=== PATIENT | female | born 1995 | race American Indian/Alaskan Native ===

== ENCOUNTER 2022-07-17 20:53 | Inpatient (IN) | payer MEDICAID ==
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
[2022-07-17] MEDS ORDERED: CARBOPROST TROMETHAMINE 250 MCG/1 ML INJ IM PRN (22:46)
[2022-07-17] MEDS ORDERED: ePHEDrine SULFATE 50 MG/1 ML INJ IV PRN (22:46)
[2022-07-17] MEDS ORDERED: METHYLERGONOVINE MALEATE 0.2 MG/ML VIAL IM PRN (22:46)
[2022-07-17] MEDS ORDERED: BUTORPHANOL 2 MG/1 ML INJ IV PRN (22:46)
[2022-07-17] MEDS ORDERED: ACETAMINOPHEN 325 MG TAB PO PRN (22:46)
[2022-07-17] MEDS ORDERED: AMPICILLIN/NS 2 GM/100 ML 2 GM/100 ML BAG IV ONE (22:46)
[2022-07-17] MEDS ORDERED: MINERAL OIL 30 ML ORAL LIQD PO PRN (22:46)
[2022-07-17] MEDS ORDERED: TERBUTALINE 1 MG/1 ML INJ SUB-Q PRN (22:46)
[2022-07-17] MEDS ORDERED: LIDOCAINE (2%) 20 MG/1 ML VIAL 20 ML MDV INFILTRATI ONE (22:46)
[2022-07-17] MEDS ORDERED: LOPERAMIDE 2 MG CAP PO PRN (22:46)
[2022-07-17] MEDS ORDERED: ONDANSETRON 4 MG/2 ML INJ IV PRN (22:46)
[2022-07-17] MEDS ORDERED: OXYTOCIN 10 UNIT/1 ML INJ IM PRN (22:46)
[2022-07-17] MEDS ORDERED: miSOPROStol 200 MCG TAB PR PRN (22:46)
[2022-07-17] MEDS ORDERED: AZITHROMYCIN 250 MG TAB PO ONE (22:51)
[2022-07-17] MEDS ORDERED: LIDOCAINE-MPF (1%) 10 MG/1 ML VIAL 5 ML INFILTRATI ONE (22:54)
[2022-07-17] MEDS ORDERED: OXYTOCIN DRIP 30 UNITS/500 ML BAG IV SCH ×2 (23:00)
[2022-07-17] MEDS ORDERED: LACTATED RINGERS 1,000 ML ONE (23:06)
[2022-07-17 23:10] LABS: Hematocrit 31.5 % (30.3-42.9); Hemoglobin 10.2 gm/dl (10.1-14.3); Mean Corpuscular HGB Conc 32 % (30-34); Mean Corpuscular Volume 77 fl (79-97); Platelet Count 230 K/mm3 (140-440); Red Cell Distribution Width 14.9 % (13.2-15.2)
[2022-07-18] MEDS ORDERED: SODIUM CHLORIDE 0.9% 250ML 250 ML IV ONE (00:28)
[2022-07-18] MEDS: fentaNYL 100 MCG/2 ML INJ IV PRN ×2 (02:02→04:42)
[2022-07-18] MEDS: AMPICILLIN/NS 1 GM/50 ML 1 GM/50 ML BAG IV SCH ×3 (03:55→17:21)
--- NOTE | 2022-07-18 07:41 | Progress Note ---
Assessment and Plan Plan to increase pitocin as needed for adequate labor. Epidural PRN. Anticipate - Patient Problems (1) 38 weeks gestation of Current Visit: Yes Status: Acute (2) Chlamydia Current Visit: Yes Status: Acute Plan to address problem: treated 07/17/2022 (3) Gonorrhea affecting in third trimester Current Visit: Yes Status: Acute Plan to address problem: treated 07/17/2022 (4) IUGR (intrauterine growth restriction) affecting care of mother Current Visit: Yes Status: Acute Qualifiers: Fetus number: single or unspecified fetus Trimester: third trimester Qualified Code(s): O36.5930 - Maternal care for other known or suspected poor growth, third trimester, not applicable or unspecified (5) Positive GBS test Current Visit: Yes Status: Acute Plan to address problem: continue amp q4hrs (6) SROM (spontaneous rupture of membranes) Current Visit: Yes Status: Acute Subjective - Subjective Date of service: 07/18/22 Principal diagnosis: IOL IUGR; SROM Patient reports: loss of fluid, movement normal, contractions, no vaginal bleeding Objective - Vital Signs Vital Signs: Vital Signs - 12hr 07/17/22 07/17/22 07/17/22 21:19 21:48 21:49 Temperature 98.6 F Pulse Rate 85 81 Respiratory 15 Rate Blood Pressure 116/79 O2 Sat by Pulse 100 Oximetry O2 Sat by Pulse 98 Oximetry [ Anterior Bilateral Throughout] 07/17/22 07/17/22 07/17/22 21:53 21:58 22:03 Temperature Pulse Rate 95 H 84 77 Respiratory Rate Blood Pressure O2 Sat by Pulse 100 100 100 Oximetry O2 Sat by Pulse Oximetry [ Anterior Bilateral Throughout] 07/17/22 07/17/22 07/17/22 22:08 22:13 22:18 Temperature Pulse Rate 86 86 86 Respiratory Rate Blood Pressure O2 Sat by Pulse 100 100 100 Oximetry O2 Sat by Pulse Oximetry [ Anterior Bilateral Throughout] 07/17/22 07/17/22 07/17/22 22:23 22:28 22:34 Temperature Pulse Rate 89 85 83 Respiratory Rate Blood Pressure O2 Sat by Pulse 100 100 99 Oximetry O2 Sat by Pulse Oximetry [ Anterior Bilateral Throughout] 07/17/22 07/17/22 07/17/22 22:39 22:44 22:49 Temperature Pulse Rate 87 79 84 Respiratory Rate Blood Pressure O2 Sat by Pulse 100 100 100 Oximetry O2 Sat by Pulse Oximetry [ Anterior Bilateral Throughout] 07/17/22 07/17/22 07/17/22 22:54 22:59 23:04 Temperature Pulse Rate 90 80 88 Respiratory Rate Blood Pressure O2 Sat by Pulse 100 100 100 Oximetry O2 Sat by Pulse Oximetry [ Anterior Bilateral Throughout] 07/17/22 07/17/22 07/17/22 23:09 23:19 23:21 Temperature Pulse Rate 79 77 71 Respiratory Rate Blood Pressure 121/83 O2 Sat by Pulse 100 99 Oximetry O2 Sat by Pulse Oximetry [ Anterior Bilateral Throughout] 07/17/22 07/17/22 07/17/22 23:22 23:24 23:29 Temperature 98.3 F Pulse Rate 76 80 Respiratory 17 Rate Blood Pressure O2 Sat by Pulse 100 100 Oximetry O2 Sat by Pulse Oximetry [ Anterior Bilateral Throughout] 07/17/22 07/17/22 07/17/22 23:34 23:39 23:44 Temperature Pulse Rate 75 83 80 Respiratory Rate Blood Pressure O2 Sat by Pulse 100 100 100 Oximetry O2 Sat by Pulse Oximetry [ Anterior Bilateral Throughout] 07/17/22 07/17/22 07/17/22 23:49 23:54 23:59 Temperature Pulse Rate 76 80 82 Respiratory Rate Blood Pressure O2 Sat by Pulse 100 100 100 Oximetry O2 Sat by Pulse Oximetry [ Anterior Bilateral Throughout] 07/18/22 07/18/22 07/18/22 00:04 00:09 00:14 Temperature Pulse Rate 80 88 83 Respiratory Rate Blood Pressure O2 Sat by Pulse 100 100 100 Oximetry O2 Sat by Pulse Oximetry [ Anterior Bilateral Throughout] 07/18/22 07/18/22 07/18/22 00:19 00:24 00:29 Temperature Pulse Rate 98 H 80 81 Respiratory Rate Blood Pressure O2 Sat by Pulse 100 99 100 Oximetry O2 Sat by Pulse Oximetry [ Anterior Bilateral Throughout] 07/18/22 07/18/22 07/18/22 00:34 00:39 00:44 Temperature Pulse Rate 83 77 96 H Respiratory Rate Blood Pressure O2 Sat by Pulse 99 100 99 Oximetry O2 Sat by Pulse Oximetry [ Anterior Bilateral Throughout] 07/18/22 07/18/22 07/18/22 00:49 00:54 00:59 Temperature Pulse Rate 77 79 79 Respiratory Rate Blood Pressure O2 Sat by Pulse 99 98 100 Oximetry O2 Sat by Pulse Oximetry [ Anterior Bilateral Throughout] 07/18/22 07/18/22 07/18/22 01:04 01:09 01:14 Temperature Pulse Rate 87 78 89 Respiratory Rate Blood Pressure O2 Sat by Pulse 99 100 100 Oximetry O2 Sat by Pulse Oximetry [ Anterior Bilateral Throughout] 07/18/22 07/18/22 07/18/22 01:19 01:24 01:29 Temperature Pulse Rate 76 86 78 Respiratory Rate Blood Pressure O2 Sat by Pulse 100 100 100 Oximetry O2 Sat by Pulse Oximetry [ Anterior Bilateral Throughout] 07/18/22 07/18/22 07/18/22 01:34 01:36 01:39 Temperature 97.8 F Pulse Rate 73 90 Respiratory 17 Rate Blood Pressure O2 Sat by Pulse 100 100 Oximetry O2 Sat by Pulse Oximetry [ Anterior Bilateral Throughout] 07/18/22 07/18/22 07/18/22 01:44 01:49 01:57 Temperature Pulse Rate 79 82 77 Respiratory Rate Blood Pressure O2 Sat by Pulse 99 100 100 Oximetry O2 Sat by Pulse Oximetry [ Anterior Bilateral Throughout] 07/18/22 07/18/22 07/18/22 02:02 02:07 02:12 Temperature Pulse Rate 86 92 H 78 Respiratory Rate Blood Pressure O2 Sat by Pulse 98 98 98 Oximetry O2 Sat by Pulse Oximetry [ Anterior Bilateral Throughout] 07/18/22 07/18/22 07/18/22 02:17 02:22 02:27 Temperature Pulse Rate 82 81 78 Respiratory Rate Blood Pressure O2 Sat by Pulse 99 99 99 Oximetry O2 Sat by Pulse Oximetry [ Anterior Bilateral Throughout] 07/18/22 07/18/22 07/18/22 02:32 02:37 02:42 Temperature Pulse Rate 71 79 77 Respiratory Rate Blood Pressure O2 Sat by Pulse 99 98 99 Oximetry O2 Sat by Pulse Oximetry [ Anterior Bilateral Throughout] 07/18/22 07/18/22 07/18/22 02:47 02:52 02:57 Temperature Pulse Rate 81 79 75 Respiratory Rate Blood Pressure O2 Sat by Pulse 98 98 98 Oximetry O2 Sat by Pulse Oximetry [ Anterior Bilateral Throughout] 07/18/22 07/18/22 07/18/22 03:02 03:07 03:12 Temperature Pulse Rate 85 83 89 Respiratory Rate Blood Pressure O2 Sat by Pulse 97 97 99 Oximetry O2 Sat by Pulse Oximetry [ Anterior Bilateral Throughout] 07/18/22 07/18/22 07/18/22 03:17 03:22 03:27 Temperature Pulse Rate 75 87 79 Respiratory Rate Blood Pressure O2 Sat by Pulse 98 99 98 Oximetry O2 Sat by Pulse Oximetry [ Anterior Bilateral Throughout] 07/18/22 07/18/22 07/18/22 03:32 03:37 03:42 Temperature Pulse Rate 79 81 87 Respiratory Rate Blood Pressure O2 Sat by Pulse 99 98 99 Oximetry O2 Sat by Pulse Oximetry [ Anterior Bilateral Throughout] 07/18/22 07/18/22 07/18/22 03:47 03:52 03:57 Temperature Pulse Rate 82 82 82 Respiratory Rate Blood Pressure O2 Sat by Pulse 99 98 100 Oximetry O2 Sat by Pulse Oximetry [ Anterior Bilateral Throughout] 07/18/22 07/18/22 07/18/22 04:02 04:07 04:12 Temperature Pulse Rate 76 85 78 Respiratory Rate Blood Pressure O2 Sat by Pulse 99 99 98 Oximetry O2 Sat by Pulse Oximetry [ Anterior Bilateral Throughout] 07/18/22 07/18/22 07/18/22 04:17 04:22 04:27 Temperature Pulse Rate 78 81 77 Respiratory Rate Blood Pressure O2 Sat by Pulse 98 98 99 Oximetry O2 Sat by Pulse Oximetry [ Anterior Bilateral Throughout] 07/18/22 07/18/22 07/18/22 04:32 04:37 04:41 Temperature 98.1 F Pulse Rate 78 88 74 Respiratory 16 Rate Blood Pressure 118/75 O2 Sat by Pulse 98 99 Oximetry O2 Sat by Pulse Oximetry [ Anterior Bilateral Throughout] 07/18/22 07/18/22 07/18/22 04:42 04:47 04:52 Temperature Pulse Rate 80 83 77 Respiratory Rate Blood Pressure O2 Sat by Pulse 99 97 98 Oximetry O2 Sat by Pulse Oximetry [ Anterior Bilateral Throughout] 07/18/22 07/18/22 07/18/22 04:57 05:02 05:07 Temperature Pulse Rate 77 73 84 Respiratory Rate Blood Pressure O2 Sat by Pulse 98 98 98 Oximetry O2 Sat by Pulse Oximetry [ Anterior Bilateral Throughout] 07/18/22 07/18/22 07/18/22 05:12 05:17 05:22 Temperature Pulse Rate 74 80 73 Respiratory Rate Blood Pressure O2 Sat by Pulse 98 97 98 Oximetry O2 Sat by Pulse Oximetry [ Anterior Bilateral Throughout] 07/18/22 07/18/22 07/18/22 05:27 05:48 05:53 Temperature Pulse Rate 77 91 H 88 Respiratory Rate Blood Pressure O2 Sat by Pulse 98 100 100 Oximetry O2 Sat by Pulse Oximetry [ Anterior Bilateral Throughout] 07/18/22 07/18/22 07/18/22 05:58 06:03 06:08 Temperature Pulse Rate 77 80 74 Respiratory Rate Blood Pressure O2 Sat by Pulse 99 99 99 Oximetry O2 Sat by Pulse Oximetry [ Anterior Bilateral Throughout] 07/18/22 07/18/22 07/18/22 06:13 06:18 06:23 Temperature Pulse Rate 70 78 79 Respiratory Rate Blood Pressure O2 Sat by Pulse 99 98 100 Oximetry O2 Sat by Pulse Oximetry [ Anterior Bilateral Throughout] 07/18/22 07/18/22 07/18/22 06:28 06:33 06:38 Temperature Pulse Rate 74 84 82 Respiratory Rate Blood Pressure O2 Sat by Pulse 99 98 99 Oximetry O2 Sat by Pulse Oximetry [ Anterior Bilateral Throughout] 07/18/22 07/18/22 07/18/22 06:43 06:48 06:53 Temperature Pulse Rate 69 74 74 Respiratory Rate Blood Pressure O2 Sat by Pulse 98 98 98 Oximetry O2 Sat by Pulse Oximetry [ Anterior Bilateral Throughout] 07/18/22 07/18/22 07/18/22 06:58 07:03 07:08 Temperature Pulse Rate 81 76 74 Respiratory Rate Blood Pressure O2 Sat by Pulse 99 99 98 Oximetry O2 Sat by Pulse Oximetry [ Anterior Bilateral Throughout] 07/18/22 07/18/22 07/18/22 07:10 07:13 07:18 Temperature Pulse Rate 80 77 71 Respiratory Rate Blood Pressure O2 Sat by Pulse 69 L 99 99 Oximetry O2 Sat by Pulse Oximetry [ Anterior Bilateral Throughout] 07/18/22 07/18/22 07/18/22 07:23 07:28 07:33 Temperature Pulse Rate 86 73 74 Respiratory Rate Blood Pressure O2 Sat by Pulse 99 99 99 Oximetry O2 Sat by Pulse Oximetry [ Anterior Bilateral Throughout] 07/18/22 07:38 Temperature Pulse Rate 71 Respiratory Rate Blood Pressure O2 Sat by Pulse 100 Oximetry O2 Sat by Pulse Oximetry [ Anterior Bilateral Throughout] - Exam Breasts: normal Cardiovascular: Regular rate Lungs: Normal air movement Abdomen: Present: normal appearance, soft Vulva: both: normal Uterus: Present: normal, fundal height above umbilicus FHR: category 1 Uterine Contraction Monitor Mode: External Uterine Contraction Pattern: Regular Uterine Tone Measurement Phase: Contraction Uterine Contraction Intensity: Mild Extremities: normal - Labs Labs: Abnormal Labs 07/17/22 22:00 MCV 77 L MCH 25 L Laboratory Results - last 24 hr 07/17/22 07/17/22 07/17/22 22:00 22:00 22:00 WBC 9.3 RBC 4.10 Hgb 10.2 Hct 31.5 MCV 77 L MCH 25 L MCHC 32 RDW 14.9 Plt Count 230 Syphilis IgG/IgM Ab Nonreactive HIV 1&2 Antibody Rapid HIV P24 Antigen Blood Type O POSITIVE Antibody Screen Negative 07/17/22 22:00 WBC RBC Hgb Hct MCV MCH MCHC RDW Plt Count Syphilis IgG/IgM Ab HIV 1&2 Antibody Rapid Non react HIV P24 Antigen Non react Blood Type Antibody Screen
[2022-07-18] MEDS ORDERED: LACTATED RINGERS 1,000 ML ONE ×3 (09:25→17:16)
--- NOTE | 2022-07-18 11:02 | Anesthesia Consultation ---
Anesthesia Consult and Med Hx Date of service: 07/18/22 - Airway Anesthetic Teeth Evaluation: Good ROM Head & Neck: Adequate Mental/Hyoid Distance: Adequate Mallampati Class: Class II Intubation Access Assessment: Probably Good - Pulmonary Exam CTA: Yes - Cardiac Exam Cardiac Exam: RRR - Pre-Operative Health Status ASA Pre-Surgery Classification: ASA2 Proposed Anesthetic Plan: Epidural - Pulmonary Hx Smoking: No Hx Asthma: No Hx Respiratory Symptoms: No SOB: No COPD: No Home Oxygen Therapy: No Hx Pneumonia: No Hx Sleep Apnea: No - Cardiovascular System Hx Hypertension: No Hx Coronary Artery Disease: No Hx Heart Attack/AMI: No Hx Angina: No Hx Percutaneous Transluminal Coronary Angioplasty (PTCA): No Hx Cardia Arrhythmia: No Hx Pacemaker: No Hx Internal Defibrillator: No Hx Valvular Heart Disease: No Hx Heart Murmur: No Hx Peripheral Vascular Disease: No - Central Nervous System Hx Neuromuscular Disorder: No Hx Seizures: Yes (2010) CVA: No Hx Back Pain: No Hx Psychiatric Problems: No - Gastrointestinal Hx Ulcer: No Hx Gastroesophageal Reflux Disease: No - Endocrine Hx Renal Disease: No Hx End Stage Renal Disease: No Hx Cirrhosis: No Hx Liver Disease: No Hx Insulin Dependent Diabetes: No Hx Non-Insulin Dependent Diabetes: No Hx Thyroid Disease: No Hx Hypothyroidism: No Hx Hyperthyroidism: No - Hematic Hx Anemia: No Hx Sickle Cell Disease: No - Other Systems Hx Alcohol Use: No Hx Substance Use: No Hx Cancer: No Hx Obesity: No
--- NOTE | 2022-07-18 11:03 | Anesthesia Day of Surgery ---
Anesthesia Day of Surgery - Day of Surgery Patient Examined: Yes Patient H&P Reviewed: Yes Patient is NPO: Yes Beta Blockers: No Cardiac Clearance: No Pulmonary Clearance: No Guido's Test: N/A
--- NOTE | 2022-07-18 11:10 | Progress Note ---
Labor Epidural - Labor Epidural Start Time: 10:30 Stop Time: 10:40 Performed by:: LAMBERTO BROWN Procedure: Epidural Requested for Labor Pain. H&P and PT Chart reviewed and consent obtained. Time out performed and the procedure was explained, all questions answered. Patient was placed in a sitting position with monitors applied. The PTs back was prepped and draped in usual sterile fashion. The Skin was localized with 3 mL of 1% lidocaine at L3-L4. A 17-gauge Touhy epidural needle was advanced to EVERARDO with saline at 7 cm and no blood/CSF was noted via epidural needle. Epidural catheter was advanced to 12 cm. There was negative aspiration for blood and CSF in the catheter and negative response to a test dose of 3 ml 1.5% lidocaine w/ Epi and a sterile dressing was applied Patient tolerated the procedure well and there were no immediate complications noted.
[2022-07-18] MEDS: ePHEDrine SULFATE 50 MG/1 ML INJ IV PRN ×3 (11:22→17:41)
[2022-07-18] MEDS ORDERED: fentaNYL-BUPIV 2 MCG/ML-0.125% 200 MCG/100 ML BAG EPIDURAL SCH (12:00)
[2022-07-18] MEDS ORDERED: NALOXONE 0.4 MG/1 ML INJ IV PRN (12:00)
--- NOTE | 2022-07-18 17:04 | Progress Note ---
Assessment and Plan patient resting comfortable s/p epidural redose. SVE 6.5/80/-1, pelvis feels adequate for size of baby. + blood show. Pt feels rectal pressure during ctx. Pitocin increased to 8mU. Pt turned to right side. - Patient Problems (1) 38 weeks gestation of Current Visit: Yes Status: Acute (2) Chlamydia Current Visit: Yes Status: Acute (3) Gonorrhea affecting in third trimester Current Visit: Yes Status: Acute (4) IUGR (intrauterine growth restriction) affecting care of mother Current Visit: Yes Status: Acute Qualifiers: Fetus number: single or unspecified fetus Trimester: third trimester Qualified Code(s): O36.5930 - Maternal care for other known or suspected poor growth, third trimester, not applicable or unspecified (5) Positive GBS test Current Visit: Yes Status: Acute (6) SROM (spontaneous rupture of membranes) Current Visit: Yes Status: Acute Subjective - Subjective Date of service: 07/18/22 Principal diagnosis: IOL IUGR; SROM Patient reports: other (rectal pressure) Objective - Vital Signs Vital Signs: Vital Signs - 12hr 07/18/22 07/18/22 07/18/22 05:02 05:07 05:12 Temperature Pulse Rate 73 84 74 Respiratory Rate Blood Pressure Blood Pressure [Left] O2 Sat by Pulse 98 98 98 Oximetry O2 Sat by Pulse Oximetry [ Anterior Bilateral Throughout] 07/18/22 07/18/22 07/18/22 05:17 05:22 05:27 Temperature Pulse Rate 80 73 77 Respiratory Rate Blood Pressure Blood Pressure [Left] O2 Sat by Pulse 97 98 98 Oximetry O2 Sat by Pulse Oximetry [ Anterior Bilateral Throughout] 07/18/22 07/18/22 07/18/22 05:48 05:53 05:58 Temperature Pulse Rate 91 H 88 77 Respiratory Rate Blood Pressure Blood Pressure [Left] O2 Sat by Pulse 100 100 99 Oximetry O2 Sat by Pulse Oximetry [ Anterior Bilateral Throughout] 07/18/22 07/18/22 07/18/22 06:03 06:08 06:13 Temperature Pulse Rate 80 74 70 Respiratory Rate Blood Pressure Blood Pressure [Left] O2 Sat by Pulse 99 99 99 Oximetry O2 Sat by Pulse Oximetry [ Anterior Bilateral Throughout] 07/18/22 07/18/22 07/18/22 06:18 06:23 06:28 Temperature Pulse Rate 78 79 74 Respiratory Rate Blood Pressure Blood Pressure [Left] O2 Sat by Pulse 98 100 99 Oximetry O2 Sat by Pulse Oximetry [ Anterior Bilateral Throughout] 07/18/22 07/18/22 07/18/22 06:33 06:38 06:43 Temperature Pulse Rate 84 82 69 Respiratory Rate Blood Pressure Blood Pressure [Left] O2 Sat by Pulse 98 99 98 Oximetry O2 Sat by Pulse Oximetry [ Anterior Bilateral Throughout] 07/18/22 07/18/22 07/18/22 06:48 06:53 06:58 Temperature Pulse Rate 74 74 81 Respiratory Rate Blood Pressure Blood Pressure [Left] O2 Sat by Pulse 98 98 99 Oximetry O2 Sat by Pulse Oximetry [ Anterior Bilateral Throughout] 07/18/22 07/18/22 07/18/22 07:03 07:08 07:10 Temperature Pulse Rate 76 74 80 Respiratory Rate Blood Pressure Blood Pressure [Left] O2 Sat by Pulse 99 98 69 L Oximetry O2 Sat by Pulse Oximetry [ Anterior Bilateral Throughout] 07/18/22 07/18/22 07/18/22 07:13 07:18 07:23 Temperature Pulse Rate 77 71 86 Respiratory Rate Blood Pressure Blood Pressure [Left] O2 Sat by Pulse 99 99 99 Oximetry O2 Sat by Pulse Oximetry [ Anterior Bilateral Throughout] 07/18/22 07/18/22 07/18/22 07:28 07:33 07:38 Temperature Pulse Rate 73 74 71 Respiratory Rate Blood Pressure Blood Pressure [Left] O2 Sat by Pulse 99 99 100 Oximetry O2 Sat by Pulse Oximetry [ Anterior Bilateral Throughout] 07/18/22 07/18/22 07/18/22 07:43 07:48 07:53 Temperature Pulse Rate 73 74 82 Respiratory Rate Blood Pressure Blood Pressure [Left] O2 Sat by Pulse 100 99 98 Oximetry O2 Sat by Pulse Oximetry [ Anterior Bilateral Throughout] 07/18/22 07/18/22 07/18/22 07:57 07:58 08:03 Temperature Pulse Rate 84 87 83 Respiratory Rate Blood Pressure Blood Pressure [Left] O2 Sat by Pulse 92 96 98 Oximetry O2 Sat by Pulse Oximetry [ Anterior Bilateral Throughout] 07/18/22 07/18/22 07/18/22 08:08 08:13 08:14 Temperature Pulse Rate 78 73 77 Respiratory Rate Blood Pressure Blood Pressure [Left] O2 Sat by Pulse 99 98 94 Oximetry O2 Sat by Pulse Oximetry [ Anterior Bilateral Throughout] 07/18/22 07/18/22 07/18/22 08:18 08:23 08:28 Temperature Pulse Rate 72 67 74 Respiratory Rate Blood Pressure Blood Pressure [Left] O2 Sat by Pulse 100 99 100 Oximetry O2 Sat by Pulse Oximetry [ Anterior Bilateral Throughout] 07/18/22 07/18/22 07/18/22 08:33 08:38 08:43 Temperature Pulse Rate 75 91 H 73 Respiratory Rate Blood Pressure Blood Pressure [Left] O2 Sat by Pulse 99 100 98 Oximetry O2 Sat by Pulse Oximetry [ Anterior Bilateral Throughout] 07/18/22 07/18/22 07/18/22 08:48 08:53 08:58 Temperature Pulse Rate 78 76 74 Respiratory Rate Blood Pressure Blood Pressure [Left] O2 Sat by Pulse 100 100 99 Oximetry O2 Sat by Pulse Oximetry [ Anterior Bilateral Throughout] 07/18/22 07/18/22 07/18/22 09:03 09:08 09:13 Temperature Pulse Rate 85 79 85 Respiratory Rate Blood Pressure Blood Pressure [Left] O2 Sat by Pulse 99 100 100 Oximetry O2 Sat by Pulse Oximetry [ Anterior Bilateral Throughout] 07/18/22 07/18/22 07/18/22 09:18 09:20 09:23 Temperature 97.4 F L Pulse Rate 77 80 70 Respiratory 18 Rate Blood Pressure 124/61 Blood Pressure 124/61 [Left] O2 Sat by Pulse 99 99 99 Oximetry O2 Sat by Pulse Oximetry [ Anterior Bilateral Throughout] 07/18/22 07/18/22 07/18/22 09:28 09:30 09:33 Temperature Pulse Rate 87 68 Respiratory Rate Blood Pressure Blood Pressure [Left] O2 Sat by Pulse 100 100 Oximetry O2 Sat by Pulse 99 Oximetry [ Anterior Bilateral Throughout] 07/18/22 07/18/22 07/18/22 09:38 09:43 09:48 Temperature Pulse Rate 90 89 76 Respiratory Rate Blood Pressure Blood Pressure [Left] O2 Sat by Pulse 99 98 99 Oximetry O2 Sat by Pulse Oximetry [ Anterior Bilateral Throughout] 07/18/22 07/18/22 07/18/22 09:53 09:58 10:01 Temperature Pulse Rate 71 81 82 Respiratory Rate Blood Pressure Blood Pressure [Left] O2 Sat by Pulse 100 100 94 Oximetry O2 Sat by Pulse Oximetry [ Anterior Bilateral Throughout] 07/18/22 07/18/22 07/18/22 10:03 10:08 10:13 Temperature Pulse Rate 74 72 75 Respiratory Rate Blood Pressure Blood Pressure [Left] O2 Sat by Pulse 98 98 99 Oximetry O2 Sat by Pulse Oximetry [ Anterior Bilateral Throughout] 07/18/22 07/18/22 07/18/22 10:18 10:23 10:28 Temperature Pulse Rate 83 74 82 Respiratory Rate Blood Pressure Blood Pressure [Left] O2 Sat by Pulse 100 99 100 Oximetry O2 Sat by Pulse Oximetry [ Anterior Bilateral Throughout] 07/18/22 07/18/22 07/18/22 10:33 10:36 10:37 Temperature Pulse Rate 79 73 72 Respiratory Rate Blood Pressure 124/76 Blood Pressure [Left] O2 Sat by Pulse 98 90 Oximetry O2 Sat by Pulse Oximetry [ Anterior Bilateral Throughout] 07/18/22 07/18/22 07/18/22 10:38 10:40 10:43 Temperature Pulse Rate 71 78 75 Respiratory Rate Blood Pressure 122/84 125/83 Blood Pressure [Left] O2 Sat by Pulse 100 100 Oximetry O2 Sat by Pulse Oximetry [ Anterior Bilateral Throughout] 07/18/22 07/18/22 07/18/22 10:46 10:48 10:49 Temperature Pulse Rate 84 80 79 Respiratory Rate Blood Pressure 114/82 123/82 Blood Pressure [Left] O2 Sat by Pulse 100 Oximetry O2 Sat by Pulse Oximetry [ Anterior Bilateral Throughout] 07/18/22 07/18/22 07/18/22 10:52 10:53 10:55 Temperature Pulse Rate 88 81 83 Respiratory Rate Blood Pressure 115/82 120/79 Blood Pressure [Left] O2 Sat by Pulse 100 Oximetry O2 Sat by Pulse Oximetry [ Anterior Bilateral Throughout] 07/18/22 07/18/22 07/18/22 10:58 11:01 11:03 Temperature Pulse Rate 84 93 H 81 Respiratory Rate Blood Pressure 119/76 109/59 Blood Pressure [Left] O2 Sat by Pulse 100 100 Oximetry O2 Sat by Pulse Oximetry [ Anterior Bilateral Throughout] 07/18/22 07/18/22 07/18/22 11:04 11:08 11:13 Temperature Pulse Rate 75 80 94 H Respiratory Rate Blood Pressure 105/62 Blood Pressure [Left] O2 Sat by Pulse 100 99 Oximetry O2 Sat by Pulse Oximetry [ Anterior Bilateral Throughout] 07/18/22 07/18/22 07/18/22 11:14 11:18 11:20 Temperature Pulse Rate 85 79 86 Respiratory Rate Blood Pressure 104/60 104/56 Blood Pressure [Left] O2 Sat by Pulse 97 Oximetry O2 Sat by Pulse Oximetry [ Anterior Bilateral Throughout] 07/18/22 07/18/22 07/18/22 11:23 11:25 11:28 Temperature Pulse Rate 82 76 79 Respiratory Rate Blood Pressure 110/59 Blood Pressure [Left] O2 Sat by Pulse 98 97 Oximetry O2 Sat by Pulse Oximetry [ Anterior Bilateral Throughout] 07/18/22 07/18/22 07/18/22 11:30 11:33 11:36 Temperature Pulse Rate 76 79 81 Respiratory Rate Blood Pressure 98/52 95/55 Blood Pressure [Left] O2 Sat by Pulse 97 Oximetry O2 Sat by Pulse Oximetry [ Anterior Bilateral Throughout] 07/18/22 07/18/22 07/18/22 11:38 11:42 11:43 Temperature Pulse Rate 83 83 78 Respiratory Rate Blood Pressure 94/51 Blood Pressure [Left] O2 Sat by Pulse 96 96 Oximetry O2 Sat by Pulse Oximetry [ Anterior Bilateral Throughout] 07/18/22 07/18/22 07/18/22 11:46 11:48 11:51 Temperature Pulse Rate 82 81 81 Respiratory Rate Blood Pressure 95/50 102/51 Blood Pressure [Left] O2 Sat by Pulse 95 Oximetry O2 Sat by Pulse Oximetry [ Anterior Bilateral Throughout] 07/18/22 07/18/22 07/18/22 11:53 11:56 11:58 Temperature Pulse Rate 80 83 80 Respiratory Rate Blood Pressure 93/54 Blood Pressure [Left] O2 Sat by Pulse 96 95 Oximetry O2 Sat by Pulse Oximetry [ Anterior Bilateral Throughout] 07/18/22 07/18/22 07/18/22 12:02 12:03 12:06 Temperature Pulse Rate 75 82 77 Respiratory Rate Blood Pressure 97/53 100/49 Blood Pressure [Left] O2 Sat by Pulse 96 Oximetry O2 Sat by Pulse Oximetry [ Anterior Bilateral Throughout] 07/18/22 07/18/22 07/18/22 12:08 12:12 12:13 Temperature Pulse Rate 81 77 73 Respiratory Rate Blood Pressure 98/54 Blood Pressure [Left] O2 Sat by Pulse 95 95 Oximetry O2 Sat by Pulse Oximetry [ Anterior Bilateral Throughout] 09/01/22 09/01/22 09/01/22 12:17 12:18 12:22 Temperature Pulse Rate 96 H 78 77 Respiratory Rate Blood Pressure 112/51 99/55 Blood Pressure [Left] O2 Sat by Pulse 100 Oximetry O2 Sat by Pulse Oximetry [ Anterior Bilateral Throughout] 07/18/22 07/18/22 07/18/22 12:23 12:27 12:28 Temperature Pulse Rate 74 74 56 L Respiratory Rate Blood Pressure 96/50 Blood Pressure [Left] O2 Sat by Pulse 100 100 Oximetry O2 Sat by Pulse Oximetry [ Anterior Bilateral Throughout] 07/18/22 07/18/22 07/18/22 12:32 12:33 12:37 Temperature Pulse Rate 96 H 88 96 H Respiratory Rate Blood Pressure 97/54 110/53 Blood Pressure [Left] O2 Sat by Pulse 100 Oximetry O2 Sat by Pulse Oximetry [ Anterior Bilateral Throughout] 07/18/22 07/18/22 07/18/22 12:38 12:42 12:43 Temperature Pulse Rate 101 H 89 100 H Respiratory Rate Blood Pressure 89/48 Blood Pressure [Left] O2 Sat by Pulse 100 100 Oximetry O2 Sat by Pulse Oximetry [ Anterior Bilateral Throughout] 07/18/22 07/18/22 07/18/22 12:47 12:48 12:52 Temperature Pulse Rate 85 93 H 90 Respiratory Rate Blood Pressure 94/52 88/48 Blood Pressure [Left] O2 Sat by Pulse 100 Oximetry O2 Sat by Pulse Oximetry [ Anterior Bilateral Throughout] 07/18/22 07/18/22 07/18/22 12:53 12:57 12:58 Temperature Pulse Rate 91 H 89 93 H Respiratory Rate Blood Pressure 94/49 Blood Pressure [Left] O2 Sat by Pulse 100 100 Oximetry O2 Sat by Pulse Oximetry [ Anterior Bilateral Throughout] 07/18/22 07/18/22 07/18/22 13:03 13:04 13:06 Temperature Pulse Rate 85 94 H 101 H Respiratory Rate Blood Pressure 95/53 94/50 Blood Pressure [Left] O2 Sat by Pulse 100 Oximetry O2 Sat by Pulse Oximetry [ Anterior Bilateral Throughout] 07/18/22 07/18/22 07/18/22 13:08 13:12 13:13 Temperature Pulse Rate 85 85 86 Respiratory Rate Blood Pressure 99/53 Blood Pressure [Left] O2 Sat by Pulse 100 100 Oximetry O2 Sat by Pulse Oximetry [ Anterior Bilateral Throughout] 07/18/22 07/18/22 07/18/22 13:16 13:18 13:21 Temperature Pulse Rate 84 84 80 Respiratory Rate Blood Pressure 103/52 94/53 Blood Pressure [Left] O2 Sat by Pulse 100 Oximetry O2 Sat by Pulse Oximetry [ Anterior Bilateral Throughout] 07/18/22 07/18/22 07/18/22 13:23 13:26 13:28 Temperature Pulse Rate 84 81 85 Respiratory Rate Blood Pressure 96/55 Blood Pressure [Left] O2 Sat by Pulse 100 100 Oximetry O2 Sat by Pulse Oximetry [ Anterior Bilateral Throughout] 07/18/22 07/18/22 07/18/22 13:33 13:36 13:38 Temperature Pulse Rate 84 84 95 H Respiratory Rate Blood Pressure 106/50 101/50 Blood Pressure [Left] O2 Sat by Pulse 100 100 Oximetry O2 Sat by Pulse Oximetry [ Anterior Bilateral Throughout] 07/18/22 07/18/22 07/18/22 13:41 13:43 13:46 Temperature Pulse Rate 82 86 91 H Respiratory Rate Blood Pressure 103/53 99/51 Blood Pressure [Left] O2 Sat by Pulse 100 Oximetry O2 Sat by Pulse Oximetry [ Anterior Bilateral Throughout] 07/18/22 07/18/22 07/18/22 13:48 13:52 13:53 Temperature Pulse Rate 92 H 79 102 H Respiratory Rate Blood Pressure 112/56 Blood Pressure [Left] O2 Sat by Pulse 100 100 Oximetry O2 Sat by Pulse Oximetry [ Anterior Bilateral Throughout] 07/18/22 07/18/22 07/18/22 13:57 13:58 14:03 Temperature Pulse Rate 83 88 111 H Respiratory Rate Blood Pressure 109/55 Blood Pressure [Left] O2 Sat by Pulse 100 100 Oximetry O2 Sat by Pulse Oximetry [ Anterior Bilateral Throughout] 07/18/22 07/18/22 07/18/22 14:04 14:08 14:13 Temperature Pulse Rate 103 H 102 H 95 H Respiratory Rate Blood Pressure 105/59 105/51 Blood Pressure [Left] O2 Sat by Pulse 99 98 Oximetry O2 Sat by Pulse Oximetry [ Anterior Bilateral Throughout] 07/18/22 07/18/22 07/18/22 14:18 14:23 14:28 Temperature Pulse Rate 100 H 105 H 93 H Respiratory Rate Blood Pressure 99/55 Blood Pressure [Left] O2 Sat by Pulse 99 99 100 Oximetry O2 Sat by Pulse Oximetry [ Anterior Bilateral Throughout] 07/18/22 07/18/22 07/18/22 14:33 14:38 14:43 Temperature Pulse Rate 103 H 91 H 84 Respiratory Rate Blood Pressure 107/58 Blood Pressure [Left] O2 Sat by Pulse 97 100 99 Oximetry O2 Sat by Pulse Oximetry [ Anterior Bilateral Throughout] 07/18/22 07/18/22 07/18/22 14:48 14:53 14:54 Temperature 98.2 F Pulse Rate 86 102 H 101 H Respiratory 12 Rate Blood Pressure 103/56 Blood Pressure [Left] O2 Sat by Pulse 99 99 98 Oximetry O2 Sat by Pulse Oximetry [ Anterior Bilateral Throughout] 07/18/22 07/18/22 07/18/22 14:58 15:03 15:08 Temperature Pulse Rate 85 103 H 101 H Respiratory Rate Blood Pressure Blood Pressure [Left] O2 Sat by Pulse 99 98 100 Oximetry O2 Sat by Pulse Oximetry [ Anterior Bilateral Throughout] 07/18/22 07/18/22 07/18/22 15:10 15:13 15:18 Temperature Pulse Rate 107 H 98 H 81 Respiratory Rate Blood Pressure 113/55 Blood Pressure [Left] O2 Sat by Pulse 100 100 Oximetry O2 Sat by Pulse Oximetry [ Anterior Bilateral Throughout] 07/18/22 07/18/22 07/18/22 15:23 15:26 15:28 Temperature Pulse Rate 100 H 87 85 Respiratory Rate Blood Pressure 114/70 Blood Pressure [Left] O2 Sat by Pulse 97 98 Oximetry O2 Sat by Pulse Oximetry [ Anterior Bilateral Throughout] 07/18/22 07/18/22 07/18/22 15:33 15:38 15:43 Temperature Pulse Rate 85 95 H 82 Respiratory Rate Blood Pressure 121/72 Blood Pressure [Left] O2 Sat by Pulse 100 97 100 Oximetry O2 Sat by Pulse Oximetry [ Anterior Bilateral Throughout] 07/18/22 07/18/22 07/18/22 15:48 15:53 15:54 Temperature Pulse Rate 79 89 81 Respiratory Rate Blood Pressure 118/79 Blood Pressure [Left] O2 Sat by Pulse 100 100 Oximetry O2 Sat by Pulse Oximetry [ Anterior Bilateral Throughout] 07/18/22 07/18/22 07/18/22 15:58 16:02 16:03 Temperature Pulse Rate 90 72 92 H Respiratory Rate Blood Pressure Blood Pressure [Left] O2 Sat by Pulse 100 80 L 100 Oximetry O2 Sat by Pulse Oximetry [ Anterior Bilateral Throughout] 07/18/22 07/18/22 07/18/22 16:08 16:13 16:18 Temperature Pulse Rate 89 89 84 Respiratory Rate Blood Pressure 115/75 Blood Pressure [Left] O2 Sat by Pulse 100 100 100 Oximetry O2 Sat by Pulse Oximetry [ Anterior Bilateral Throughout] 07/18/22 07/18/22 07/18/22 16:23 16:24 16:28 Temperature Pulse Rate 89 85 82 Respiratory Rate Blood Pressure 118/82 Blood Pressure [Left] O2 Sat by Pulse 100 98 Oximetry O2 Sat by Pulse Oximetry [ Anterior Bilateral Throughout] 07/18/22 07/18/22 07/18/22 16:33 16:38 16:39 Temperature Pulse Rate 87 89 85 Respiratory Rate Blood Pressure 102/57 Blood Pressure [Left] O2 Sat by Pulse 99 98 Oximetry O2 Sat by Pulse Oximetry [ Anterior Bilateral Throughout] 07/18/22 07/18/22 07/18/22 16:43 16:48 16:53 Temperature Pulse Rate 90 80 84 Respiratory Rate Blood Pressure Blood Pressure [Left] O2 Sat by Pulse 98 98 98 Oximetry O2 Sat by Pulse Oximetry [ Anterior Bilateral Throughout] 07/18/22 07/18/22 16:54 16:58 Temperature Pulse Rate 83 109 H Respiratory Rate Blood Pressure 99/57 Blood Pressure [Left] O2 Sat by Pulse 100 Oximetry O2 Sat by Pulse Oximetry [ Anterior Bilateral Throughout] - Exam Cardiovascular: Regular rate Lungs: Normal air movement Abdomen: Present: normal appearance, soft Vulva: both: normal FHR: category 2 Uterine Contraction Monitor Mode: External Cervical Dilatation: 6.5 Cervical Effacement Percentage: 80 station: -1 Uterine Contraction Frequency (min): 3-6 Uterine Contraction Duration: 60 Uterine Contraction Pattern: Regular Uterine Tone Measurement Phase: Contraction Uterine Contraction Intensity: Moderate Extremities: normal Deep Tendon Reflex Grade: Normal +2 - Labs Labs: Abnormal Labs 07/17/22 22:00 MCV 77 L MCH 25 L Laboratory Results - last 24 hr 07/17/22 07/17/22 07/17/22 22:00 22:00 22:00 WBC 9.3 RBC 4.10 Hgb 10.2 Hct 31.5 MCV 77 L MCH 25 L MCHC 32 RDW 14.9 Plt Count 230 Syphilis IgG/IgM Ab Nonreactive SARS-CoV-2 (PCR) HIV 1&2 Antibody Rapid HIV P24 Antigen Blood Type O POSITIVE Antibody Screen Negative 07/17/22 07/18/22 22:00 10:18 WBC RBC Hgb Hct MCV MCH MCHC RDW Plt Count Syphilis IgG/IgM Ab SARS-CoV-2 (PCR) Negative HIV 1&2 Antibody Rapid Non react HIV P24 Antigen Non react Blood Type Antibody Screen
[2022-07-18] MEDS ORDERED: ePHEDrine SULFATE 50 MG/1 ML INJ IV PRN (17:48)
--- NOTE | 2022-07-18 20:25 | Procedure Note ---
OB Delivery Note - Delivery Date of Delivery: 07/18/22 Lens Gauger: ADELE KAUR (JAREN Jerry) Estimated blood loss: <100cc - Vaginal Delivery presentation: vertex Delivery position: OA (JONNA) Intrapartum events: PROM->1hr before delivery, other(please specify) (IUGR) Delivery induction: misoprostol Delivery augmentation: pitocin Delivery monitor: external FHT, external uterine Route of delivery: Delivery placenta: spontaneous Delivery cord: nuchal cord, 3 umbilical vessels, other (cord around body) Episiotomy: none Delivery laceration: none Anesthesia: epidural Delivery comments: baby girl born over intact perineum, JONNA and restituted to OP with right hand presenting in chin. Nuchal cord x 1 and body cord x1 delivered through, placed skin to skin on mother's abdomen. 3 vessel cord clamped and cut after cessation of pulsation. cord blood collected. Placenta delivered intact and complete with marginal cord insertion (sent to path). no lacs to repair, hemostatic. mother and baby LDR stable, all counts correct. - A at 1 minute: 8 at 5 minutes: 9 Gender: Female (5#10)
[2022-07-18] MEDS ORDERED: MAGNESIUM HYDROXIDE (MOM) ORAL LIQD UDC PO PRN (21:13)
[2022-07-18] MEDS ORDERED: LANOLIN/ZINC/DIMETHICONE (LANSINOH) 7 GM TP PRN (21:13)
[2022-07-18] MEDS ORDERED: BENZOCAINE/MENTHOL 20/0.5% TOP SPRAY 56 GM TP PRN (21:13)
[2022-07-18] MEDS ORDERED: WITCH HAZEL/ GLYCERIN PAD TP PRN (21:13)
[2022-07-18] MEDS ORDERED: PROMETHAZINE 25 MG RECT SUPP PR PRN (21:13)
[2022-07-18] MEDS ORDERED: PROMETHAZINE 25 MG TAB PO PRN (21:13)
[2022-07-18] MEDS ORDERED: ONDANSETRON 4 MG/2 ML INJ IV PRN (21:13)
[2022-07-18] MEDS ORDERED: diphenhydrAMINE 25 MG CAP PO PRN (21:13)
[2022-07-18] MEDS ORDERED: IBUPROFEN 800 MG TAB PO SCH (21:13)
[2022-07-18] MEDS: ACETAMINOPHEN 325 MG TAB PO PRN (21:29)
[2022-07-19] MEDS: ACETAMINOPHEN 325 MG TAB PO PRN ×2 (01:16→09:00)
[2022-07-19] MEDS ORDERED: TETANUS,DIPH,PERTUSS(ACELL) VACCINE 0.5 ML SYRINGE IM ONE (06:00)
--- NOTE | 2022-07-19 07:24 | Post Anesthesia Evaluation ---
- Post Anesthesia Evaluation Patient Participated: Yes Airway Patent: Yes Stable Respiratory Function: Yes Nausea/Vomiting: No Temp > 96.8F: Yes Pain Manageable: Yes Adequeate Hydration: Yes Anesthesia Complications: No Block Receding Appropriately: Yes Patient on Ventilator: No
[2022-07-19] MEDS: PRENATAL VIT27-FE FUMARATE-FOLIC ACID VIT TAB PO SCH (09:33)
[2022-07-19] MEDS: oxyCODONE /ACETAMINOPHEN 5-325MG TAB PO PRN ×2 (11:06→18:23)
--- NOTE | 2022-07-19 13:30 | Progress Note ---
Assessment and Plan A: 26 y.o. s/p , ~ 12 hours. - Patient Problems (1) (normal spontaneous vaginal delivery) Current Visit: Yes Status: Acute Plan to address problem: Continue with care. Anticipate discharge home on 07/20/2022. Subjective - Subjective Date of service: 07/19/22 Principal diagnosis: s/p Interval history: Pt states that the infant is doing but was having some feeding issues and that is why NICU care was needed. Patient reports: appetite normal, voiding normally, pain well controlled, flatus, ambulating normally Bison: doing well, in NICU Objective - Vital Signs Latest vital signs: Vital Signs Temp Pulse Resp BP BP Pulse Ox Pulse Ox 07/19/22 07:53 98.4 F 91 H 18 110/63 97 07/19/22 03:38 98.2 F 79 20 115/71 100 07/18/22 22:26 98.9 F 109 H 16 123/81 100 100 07/18/22 21:59 109 H 113/71 07/18/22 21:56 108 H 100 07/18/22 21:51 107 H 100 07/18/22 21:46 106 H 100 07/18/22 21:41 111 H 100 07/18/22 21:39 100 H 111/77 07/18/22 21:37 105 H 88 07/18/22 21:36 112 H 98 07/18/22 21:33 98.4 F 16 07/18/22 21:31 110 H 100 07/18/22 21:26 104 H 100 07/18/22 21:21 103 H 100 07/18/22 21:19 103 H 109/70 07/18/22 21:16 103 H 100 07/18/22 21:11 97 H 100 07/18/22 21:06 103 H 100 07/18/22 21:01 113 H 100 07/18/22 20:59 110 H 122/72 07/18/22 20:56 117 H 100 07/18/22 20:51 118 H 100 07/18/22 20:46 120 H 100 07/18/22 20:41 111 H 100 07/18/22 20:39 120 H 119/70 07/18/22 20:36 122 H 100 07/18/22 20:31 123 H 100 07/18/22 20:26 130 H 100 09/01/22 20:21 125 H 100 07/18/22 20:19 122 H 111/55 07/18/22 20:16 112 H 97 07/18/22 20:08 141 H 131/79 07/18/22 20:03 57 L 62 L 07/18/22 19:58 124 H 100 07/18/22 19:53 102 H 98 07/18/22 19:48 111 H 100 07/18/22 19:43 102 H 100 07/18/22 19:38 105 H 100 07/18/22 19:33 106 H 98 07/18/22 19:28 109 H 99 07/18/22 19:23 98.4 F 109 H 17 134/83 99 99 07/18/22 19:18 113 H 98 07/18/22 19:13 110 H 100 07/18/22 19:08 112 H 131/82 99 07/18/22 19:03 111 H 99 07/18/22 18:58 113 H 99 07/18/22 18:54 113 H 112/71 07/18/22 18:53 116 H 98 07/18/22 18:48 115 H 99 07/18/22 18:43 117 H 100 07/18/22 18:38 117 H 91/52 97 07/18/22 18:33 121 H 97 07/18/22 18:28 119 H 98 07/18/22 18:23 116 H 89/52 98 07/18/22 18:18 122 H 98 07/18/22 18:13 118 H 99 07/18/22 18:08 106 H 96 07/18/22 18:03 107 H 96 07/18/22 17:58 114 H 100 07/18/22 17:53 114 H 100 07/18/22 17:48 120 H 99 07/18/22 17:44 104 H 80/50 07/18/22 17:43 100 H 99 07/18/22 17:38 113 H 79/52 98 07/18/22 17:33 118 H 98 07/18/22 17:28 113 H 98 07/18/22 17:23 111 H 87/49 99 07/18/22 17:18 102 H 99 07/18/22 17:13 106 H 99 07/18/22 17:09 90 90/55 07/18/22 17:08 102 H 100 07/18/22 17:03 111 H 98 07/18/22 16:58 109 H 100 07/18/22 16:54 83 99/57 07/18/22 16:53 84 98 07/18/22 16:48 80 98 07/18/22 16:43 90 98 07/18/22 16:39 85 102/57 07/18/22 16:38 89 98 07/18/22 16:33 87 99 07/18/22 16:28 82 98 07/18/22 16:24 85 118/82 07/18/22 16:23 89 100 07/18/22 16:18 84 100 07/18/22 16:13 89 100 07/18/22 16:08 89 115/75 100 07/18/22 16:03 92 H 100 07/18/22 16:02 72 80 L 07/18/22 15:58 90 100 07/18/22 15:54 81 118/79 07/18/22 15:53 89 100 07/18/22 15:48 79 100 07/18/22 15:43 82 100 07/18/22 15:38 95 H 121/72 97 07/18/22 15:33 85 100 07/18/22 15:28 85 98 07/18/22 15:26 87 114/70 07/18/22 15:23 100 H 97 07/18/22 15:18 81 100 07/18/22 15:13 98 H 100 07/18/22 15:10 107 H 113/55 07/18/22 15:08 101 H 100 07/18/22 15:03 103 H 98 07/18/22 14:58 85 99 07/18/22 14:54 98.2 F 101 H 12 103/56 98 07/18/22 14:53 102 H 99 07/18/22 14:48 86 99 07/18/22 14:43 84 99 07/18/22 14:38 91 H 107/58 100 07/18/22 14:33 103 H 97 07/18/22 14:28 93 H 100 07/18/22 14:23 105 H 99/55 99 07/18/22 14:18 100 H 99 07/18/22 14:13 95 H 98 07/18/22 14:08 102 H 105/51 99 07/18/22 14:04 103 H 105/59 07/18/22 14:03 111 H 100 07/18/22 13:58 88 100 07/18/22 13:57 83 109/55 07/18/22 13:53 102 H 100 07/18/22 13:52 79 112/56 07/18/22 13:48 92 H 100 07/18/22 13:46 91 H 99/51 07/18/22 13:43 86 100 07/18/22 13:41 82 103/53 07/18/22 13:38 95 H 100 07/18/22 13:36 84 101/50 07/18/22 13:33 84 106/50 100 Intake and Output 07/18/22 07/19/22 07/19/22 22:59 06:59 14:59 Intake Total 15.6 360 Output Total 2100 700 Balance -2084.4 -340 Intake: IV 15.6 PITOCin/NS 30 UNIT/500ML 15.6 30 units In 500 ml @ 2 mls/hr IV TITR KATHERINE Rx#: [id number] Intake, Free Water 360 Output: Urine 2100 700 Void 2100 700 Other: Total, Output Amount 900 700 # Voids Void 1 1 Estimated Blood Loss 100 - Exam Cardiovascular: Present: Regular rate Lungs: Present: Normal air movement Abdomen: Present: normal appearance, soft Uterus: Present: normal Extremities: Present: normal
[2022-07-19] MEDS: ACETAMINOPHEN 500 MG TAB PO PRN (22:23)
[2022-07-19 23:57] LABS: Hematocrit 26.6 % (30.3-42.9); Hemoglobin 8.6 gm/dl (10.1-14.3)
[2022-07-20] MEDS: oxyCODONE /ACETAMINOPHEN 5-325MG TAB PO PRN (06:29)
[2022-07-20 08:56] VITALS: BP 114/82
[2022-07-20] MEDS: PRENATAL VIT27-FE FUMARATE-FOLIC ACID VIT TAB PO SCH (10:28)
[2022-07-20] MEDS: ACETAMINOPHEN 500 MG TAB PO PRN (10:28)
--- NOTE | 2022-07-20 12:29 | Discharge Summary ---
Providers - Providers Date of Admission: 07/17/22 20:53 Date of discharge: 07/20/22 Attending physician: JUAN MANUEL HAWTHORNE 07/18/22 21:13 Consult to [employer] Lead [CONS] Routine Reason For Exam: assistance with , SNS Primary care physician: JUAN MANUEL HAWTHORNE Hospitalization Reason for admission: induction of labor (IUGR) Delivery: Laceration: none Other procedures: none complications: none Discharge diagnosis: IUP at term delivered baby: female Hospital course: Pt here for IOL due to IUGR as per [facility] recommendations. has been complicated by +GC/CHL/+GBS. All recently diagnosed in the last trimester and will be treated at labor and delivery at this time. As per RN when pt was being examined there was SROM of clear fluid noted. Pt has no c/o today. As per admitting RN pt cx /. Pt not re-examined at this time due to SROM and to limit digital exams. Pt has an allergy to ibuprfen. EDC Confirmation: 07/27/2022 baby girl born over intact perineum, JONNA and restituted to OP with right hand presenting in chin. Nuchal cord x 1 and body cord x1 delivered through, placed skin to skin on mother's abdomen. 3 vessel cord clamped and cut after cessation of pulsation. cord blood collected. Placenta delivered intact and complete with marginal cord insertion (sent to path). no lacs to repair, hemostatic. mother and baby LDR stable, all counts correct. {atient w/o complaints, minimal lochia, desres d/c home. Attempting to breast milk feed and supplement Breast soft, NT Abd soft. NT, FF below umbilicus Exts: NT Undecided for contraception Condition at discharge: Good Disposition: HOME / SELF CARE / HOMELESS - Discharge Diagnoses (1) Chlamydia Status: Acute Comment: Zithromax 1000mg po given 07/18 (2) Gonorrhea affecting in third trimester Status: Acute Comment: Rocephin 500mg IM given 07/18 (3) (normal spontaneous vaginal delivery) Status: Acute (4) Positive GBS test Status: Acute (5) Anemia Status: Acute Qualifiers: Other causes of anemia: acute posthemorrhagic Comment: Asymptomatic Plan - Discharge Medications Prescriptions: Ferrous Sulfate [Feosol 325 MG tab] 325 mg PO QDAY #60 tablet - Provider Discharge Summary Activity: no sex for 6 weeks Diet: routine Instructions: routine Additional instructions: [] Smoking cessation referral if applicable(refer to patient education folder for contact #) [] Refer to [facility]'s [facility] Booklet Call your doctor immediately for: * Fever > 100.5 * Heavy vaginal bleeding ( >1 pad per hour) * Severe persistent headache * Shortness of breath * Reddened, hot, painful area to leg or breast * Drainage or odor from incision. * Keep incision clean and dry at all times and follow doctor's instructions regarding bathing/showering - Follow up plan Follow up: JUAN MANUEL HAWTHORNE MD [Primary Care Provider] - (4 weeks, for MEKA and to discuss contraception)
== END 2022-07-20 14:15 | disposition home or self-care (01) | DRG 774 ==
LOC: LD 20:53 → OB 07-19 01:02
PROVIDERS: ADMIT Obstetrics & Gynecology; ATTEND Obstetrics & Gynecology
PROC: 10E0XZZ Delivery of Products of Conception, External Approach (ICD-10-PCS; principal; 2022-07-18)
PROC: 3E0R3BZ Introduction of Anesthetic Agent into Spinal Canal, Percutaneous Approach (ICD-10-PCS; 2022-07-18)
PROC: 00HU33Z Insertion of Infusion Device into Spinal Canal, Percutaneous Approach (ICD-10-PCS; 2022-07-18)
PROC: 3E0234Z Introduction of Serum, Toxoid and Vaccine into Muscle, Percutaneous Approach (ICD-10-PCS; 2022-07-19)
DX: O36.5930 Maternal care for other known or suspected poor fetal growth, third trimester, not applicable or unspecified (principal); O98.82 Other maternal infectious and parasitic diseases complicating childbirth; Z20.822 Contact with and (suspected) exposure to COVID-19; O99.824 Streptococcus B carrier state complicating childbirth; O42.02 Full-term premature rupture of membranes, onset of labor within 24 hours of rupture; O69.81X0 Labor and delivery complicated by cord around neck, without compression, not applicable or unspecified; Z3A.38 38 weeks gestation of pregnancy; Z37.0 Single live birth; Z23 Encounter for immunization; O98.22 Gonorrhea complicating childbirth; A54.9 Gonococcal infection, unspecified
CPT/HCPCS: 36415; 85014; 85018; 85027; 86592; 86850; 86900; 86901; 87806; 88307; 90471; 90715; G0378; J3490; J0290; J0696; J2405; J2590; J3010; J7050; J7120; U0003